=== PATIENT | female | born 1970 | race Two or more races ===

== ENCOUNTER → 2016-09-13 | Outpatient (CLI) | payer OTHER ==
--- NOTE | 2016-09-14 00:10 | ECWPNPC ---
PATIENT NAME: ADE PENNINGTON : 1970 GENDER: FEMALE VISIT DATE: 09/13/2016 DISCHARGE DATE: 09/13/16 1625 VISIT LOCKED DATE TIME: PHYSICIAN: LAURA SMITH RESOURCE: LAURA SMITH REASON FOR APPOINTMENT 1. NECK PAIN HISTORY OF PRESENT ILLNESS NEW PATIENT CONSULT: WHEN DID YOUR PAIN FIRST START? . BRIEFLY DESCRIBE HOW YOUR PAIN STARTED? . HOW DOES YOUR PAIN CHANGE WITH TIME? . DOES YOUR PAIN AWAKEN YOU FROM SLEEP? . HOW MANY HOURS OF SLEEP DO YOU NORMALLY GET? . ANY DIAGNOSTIC TESTING? . FACILITY WHERE TESTS WERE DONE? ____. PAIN TREATMENT TREATMENT YES CANCER HAVE YOU EVER HAD ANY TYPE OF CANCER?NO NO. PAIN SCREENING: PATIENT HAS A COMPLAINT OF ACUTE OR CHRONIC PAIN YES FALL RISK SCREENING: SCREENING :NO FALLS IN THE PAST YEAR OLSEN INVENTORY: QUESTIONNAIRE ASSESSEDYES SCORE VALUE CALCULATED YES SCORE: 3/63 DENIES SUICIDAL OR HOMICIDAL IDEATION TODAY'S VISIT: NOTES: REFERRED BY HALLIE TRAN/[facility] IN THE OFFICE OF DR ENGLAND HAD PREVIOUSLY BEEN A PATIENT OF DR. SHAMIKA MÁRQUEZ, WHO HAD DONE HER PREVIOUS NECK SURGERY.. HAS BEEN EXPERIENCING NECK AND LEFT ARM PAIN FOR SEVERAL YEARS. AFTER MORE CONSERVATIVE TREATMENT DID UNDERGO A C4-5-6 HERE CERVICAL DISCECTOMY AND FUSION IN 2012. REPORTS THAT POSTOPERATIVELY SHE HAD SIGNIFICANT RELIEF OF HER PAIN BUT HAS BEEN DEVELOPING INCREASING PAIN ON RIGHT WITH RADIATION OF PAIN TO RIGHT ARM TO THE HAND. IS ALSO HAVING BURNING PAIN ON LEFT SIDE OF NECK TO THE SHOULDER. IS HAVING LIMITED ROTATION OF NECK. IS HAVING DIFF WITH SLEEP THIS AWAKENS WITH A THROBBING NUMBNESS. CAN DROP ITEMS WITH RIGHT. THIS IS THROBBING ONLY ON THE RIGHT. HAS PERSISTANT NUMBNESS IN ALL FINGERS RIGHT HAND. IS RIGHTHANDED AND CAN HAVE DIFFICULTY WITH WRITING. HAS EXPERIENCED NOTHING WHICH SEEMS TO SIGNIFICANTLY RELIEVE THE PAIN . PT WAS DONE IMMEDIATELY AFTER SURGERY, CONTINUES WITH HOME EXERCISES. HAS TENS UNIT WHICH CAN HELP WITH BURNING. HAS NOT RECENTLY SEEN A CHIROPRACTOR, , NO INJECTIONS IN NECK SINCE SURGERY. . CURRENT MEDICATIONS TAKING SINGULAIR 10 MG TABLET 1 TABLET IN THE EVENING ORALLY ONCE A DAY TAKING GABAPENTIN 100 MG CAPSULE ORALLY BEDTIME TAKING CLARITIN 10 MG TABLET 1 TABLET ORALLY ONCE A DAY TAKING SUDAFED 30 MG TABLET 1 TABLET NEEDED ORALLY EVERY 6 HRS PRN MEDICATION LIST REVIEWED AND RECONCILED WITH THE PATIENT PAST MEDICAL HISTORY CHRONIC SINITUS X DEPRESSION ALLERGIES ENVIRONMENTAL SURGICAL HISTORY L-5 SPINAL FUSION 1991 C6 2012 APPENDECTOMY 1986 FAMILY HISTORY FATHER: ALIVE MOTHER: ALIVE SIBLINGS: ALIVE SON(S): ALIVE DAUGHTER(S): ALIVE SOCIAL HISTORY GENERAL: TOBACCO USE ARE YOU A:NONSMOKER ALCOHOL SCREENING POINTS2 INTERPRETATIONNEGATIVE RECREATIONAL DRUG USE DRUG USE?NO CAFFEINE CAFFEINE USE?YES HOW OFTEN AND HOW MUCH? 1 CUP A DAY OCCUPATION: [employer] WORK[employer]. DIET: REGULAR. EXERCISE: DAILY. MARITAL STATUS: . DENOMINATIONAL: NO PREFERENCE. LANGUAGE: PASHTO. EDUCATION: COLLEGE. PSYCHOLOGICAL HX TREATMENTNO PAIN CLINIC PFS, CLERGY, PUBLIC HEALTH REFERRALS CLERGY REFERRAL NEEDED?NO WAS THE PROVIDER NOTIFIED OF ANY PERTINENT INFO?NO PFS REFERRAL NEEDED?NO PUBLIC HEALTH REFERRAL NEEDED?NO PATIENT: ____. ADVANCED DIRECTIVES HEALTH CARE PROXY?NO POWER OF BLIND HOOKER?NO HOSPITALIZATION/MAJOR DIAGNOSTIC PROCEDURE NO HOSPITALIZATION HISTORY. REVIEW OF SYSTEMS CONSTITUTIONAL: ANY CHANGE IN YOUR MEDICAL CONDITION? NO . CHILLS NO . FEVER NO . INFECTION: DO YOU HAVE NEW INFECTIONS? NO . DO YOU HAVE HISTORY OF MRSA? NO . MUSCULOSKELETAL: ANY NEW PATTERNS OF PAIN OR NUMBNESS? NO . SYTEMIC LUPUS NO . GASTROENTEROLOGY: ANY NEW CHANGE IN BOWEL CONTROL? NO . BARRETTS ESOPHAGUS NO . CIRRHOSIS NO . HEPATITIS NO . LIVER FAILURE NO . ACID REFLUX NO . UNEXPLAINED WEIGHT LOSS NO . GENITOURINARY: ANY NEW CHANGE IN BLADDER CONTROL? NO . IS THERE A CHANCE YOU COULD BE ? NO . HEMATOLOGY/LYMPH: DO YOU TAKE ANY BLOOD THINNERS? (FOR EXAMPLE- COUMADIN, PLAVIX, AGGRENOX, PLATEL, PRADAXA, OR XARELTO) NO . WHEN WAS YOUR LAST DOSE? DATE: TIME: . LOW PLATELET COUNT NO . SICKLE CELL DISEASE NO . VON WILLIEBRANDS NO . FACTOR V LEIDEN NO . THALLASEMIA NO . ANEMIA NO . EASY BRUISING NO . NEUROLOGY: HAVE YOU FALLEN IN THE PAST 6 MONTHS? NO . ANY NEW EXTREMITY NUMBNESS OR WEAKNESS? NO . HEAD INJURY NO . DEMENTIA NO . CEREBRAL PALSY NO . MULTIPLE SCLEROSIS NO . DIZZINESS NO . HEADACHE NO . STROKES NO . VERTIGO NO . CARDIOLOGY: DO YOU HAVE A PACEMAKER OR DEFIBRILLATOR? NO . ANGINA NO . HEART ATTACK NO . HEART SURGERY NO . CONGESTIVE HEART FAILURE/FLUID OVERLOAD NO . CHEST PAIN NO . HIGH BLOOD PRESSURE NO . IRREGULAR HEART BEAT NO . RESPIRATORY: HAVE YOU BEEN SICK IN THE PAST WEEK? NO . FEVER NO . FLU LIKE SYMPTOMS? NO . CPAP NO . BYPAP NO . ASTHMA NO . EMPHYSEMA NO . CHRONIC LUNG DISEASES NO . SHORTNESS OF BREATH ON EXERTION NO . DO YOU USE ANY TYPE OF TOBACCO (SMOKE, SMOKELESS, CHEW)? NO . COUGH NO . SNORING NO . INTEGUMENTARY: DO YOU HAVE ANY RASHES OR OPEN SORES? NO . ALLERGIC/IMMUNO: ARE YOU ALLERGIC TO SHELLFISH OR IV DYE? NO . ANY NEW ALLERGIES? NO . PSYCHIATRIC: DO YOU HAVE THOUGHTS OF HURTING YOURSELF OR SOMEONE ELSE? NO . ARE YOU ABUSED, NEGLECTED, OR IN AN UNSAFE ENVIRONMENT? NO . ENDOCRINOLOGY: ARE YOU DIABETIC? NO . THYROID DISORDER NO . OTHER: DO YOU NEED ANY PRESCRIPTIONS? NO . IF YES, PLEASE LIST: ____ . ANY NEW PROBLEMS WITH YOUR MEDICATIONS? NO . WHEN DID YOU LAST EAT? ____ . WHEN DID YOU LAST DRINK? ____ . WHAT DID YOU LAST DRINK? ____ . NAME OF PERSON DRIVING YOU HOME? ____ . DO YOU HAVE ANY OTHER QUESTIONS OR CONCERNS NO . REVIEWED BY: PROVIDER: [employer]A [employer] . VITAL SIGNS WT 134 LBS, HT 60", BMI 26.17 INDEX, BP 139/86 MM HG, HR 87 /MIN, RR 16 /MIN, TEMP 98.3 F, OXYGEN SAT % 97, NA INITIALS TL 1527, REVIEWED BY: KG. EXAMINATION GENERAL EXAMINATION: PSYCHALERT , ORIENTED X 3 , APPROPRIATE MOOD AND AFFECT . HEENT:NORMOCEPHALIC, NO LYMPHADENOPATHY NO THYROMEGALY. LUNGS:CLEAR TO AUSCULTATION BILATERALLY, NO WHEEZES RALES OR RHONCHI. HEART:S1-S2 NO MURMURS CLICKS OR RUBS . MUSCULOSKELETAL:NO SPECIFIC OCCIPITAL NOTCH TENDERNESS. MILD TENDERNESS WITH PALPATION OVER THE CERVICAL SPINOUS PROCESSES. TRIGGER POINTS AND TIGHT FIBROUS BANDS ARE IDENTIFIED OVER THE CERVICAL PARASPINOUS MUSCLES AND ACROSS THE TRAPEZIUS. MILD RESTRICTION OF RANGE OF MOTION IS NOTED WITH NECK FLEXION AND EXTENSION AND ROTATION. GOOD SHOULDER SHRUG. MUSCLE STRENGTH 5 OVER 5 DISTALLY AND PROXIMALLY IN THE LEFT UPPER EXTREMITY; 5 MINUS OVER 5 DISTALLY AND PROXIMALLY IN THE RIGHT UPPER EXTREMITY. POSTURE IS UPRIGHT GAIT IS NONANTALGIC ABLE TO RISE TO A FULL UPRIGHT POSITION WITHOUT DIFFICULTY ABLE TO RISE TO HEEL AND TOE WITHOUT DIFFICULTY. NEUROLOGIC EXAM:DTR'S 1+ BILATERAL UPPER EXTREMITIES. TRACE TO ABSENT IN THE BILATERAL LOWER EXTREMITIES. DECREASES SENSATION TO LIGHT TOUCH OVER THUMB RIGHT SIDE ONLY.. DIAGNOSTIC TESTS REVIEWEDMRI OF CERVICAL SPINE COMPLETED ON 06/04/16: THIS DID DEMONSTRATE PRIOR POST ANTERIOR CERVICAL DISCECTOMY AND FUSION AT C5-6 WITH SOME DISC BULGES NOTED AT C4-5 AND C6-7 NOT CAUSING ANY SIGNIFICANT SPINAL STENOSIS OR CORD COMPRESSION. AT C4-5 THERE IS A SMALL POSTERIOR OSTEOPHYTIC RIDGING WITH ASSOCIATED DISC BULGE THINNING VENTRAL SUBARACHNOID SPACE BUT NOT CAUSING CENTRAL CANAL STENOSIS. AT C6-7 THERE IS A SMALL DISC BULGE WITHOUT SPINAL STENOSIS. THERE IS FORAMINAL ENCROACHMENT ON THE RIGHT AT C6-7 THE LEFT FORAMEN WAS FELT TO BE ADEQUATE. AT C7-T1 AND T1 TO THERE IS NO DISC BULGE OR HERNIATION NO SPINAL OR FORAMINAL STENOSIS. THE CORD SHOWS NO INTRINSIC SIGNAL ABNORMALITY SHRINKS ATROPHY OR MASS. THE CRANIOCERVICAL JUNCTION SHOWS AMPLE SUBARACHNOID SPACE WITH CEREBELLAR TONSILLAR ECTOPY.EMG NERVE CONDUCTION STUDY WAS COMPLETED AT [facility] ON 03/06/2015. DID DEMONSTRATE A RIGHT SUBACUTE C5, C6, C7 PROCESS.. ASSESSMENTS CERVICAL DISC DISORDER AT C6-C7 LEVEL WITH RADICULOPATHY - M50.123 (PRIMARY) CERVICAL POST-LAMINECTOMY SYNDROME - M96.1 TREATMENT CERVICAL DISC DISORDER AT C6-C7 LEVEL WITH RADICULOPATHY CERVICAL EPIDURAL LAURA AGUSTIN 09/13/2016 4:11:34 PM > STRAIGHT INTRA LAMINAL VS, CATHETER TO C6 C7 RIGHT SIDE NOTES: DR. WONG TO COME TO THE ROOM AND DISCUSS THE CASE WITH THE PATIENT AND MYSELF. HE DID REVIEW THE REFERRAL WHICH SPECIFICALLY ASKS FOR A C6-7 TRANSFORAMINAL EPIDURAL ON THE RIGHT. DR. WONG DID EXPLAIN TO THE PATIENT THAT THIS IS NOT A PARTICULAR TREATMENT THAT WE DO HERE AT OUR CLINIC DUE TO THE RISKS. HE DID OFFER TO DO AN INTRALAMINAR EPIDURAL FOR THERAPEUTIC PURPOSES OR TO DO IT INTERLAMINAL EPIDURAL PASSAGE OF A CATHETER TO THE TO THE C6-7 NEURAL FORAMINAL SPACE FOR DIAGNOSTIC PURPOSES. WE WILL CONTACT HALLIE TRAN FOR DR. ENGLAND TO SEE IF THIS WOULD BE ACCEPTABLE. THIS WAS EXPLAINED TO THE PATIENT AND SHE WAS IN AGREEMENT. CLINICAL NOTES: OPTION FOR EPIDURAL INJECTIONS WERE DISCUSSED WITH THE PATIENT. FDA CONCERNS AND WARNING WERE REVIEWED INCLUDING THE RISK OF BLEEDING, RISK OF INFECTION, RISK OF INCREASED PAIN OR NEURALGIA, AND RISK OF PARALYSIS. PATIENT'S QUESTIONS WERE ANSWERED AND SHE WISHES TO MOVE FORWARD WITH EPIDURAL INJECTION. PROCEDURE CODES FA211 ESTABILISHED PATIENT [facility] CHARGE FOLLOW UP AFTER INJECTION (REASON: NEED TO DISCUSS WITH Marlen TRAN AT [facility]. NEED DULCE MARIA FOR EMG DONE AT DR RUSSO IN [place]) ELECTRONICALLY SIGNED BY BOB HYATT ON 09/13/2016 AT 05:30 PM EST DISCLAIMER : THIS IS A VISIT SUMMARY EXTRACTED FROM THE [employer] CHART. IT IS NOT A COPY OF THE [email or web address] PROGRESS NOTE. WILLAM
== END ==
LOC: M PAIN 15:20
PROVIDERS: ATTEND Nurse Practitioner Family
DX: G89.29 Other chronic pain (principal); M50.123 Cervical disc disorder at C6-C7 level with radiculopathy; M96.1 Postlaminectomy syndrome, not elsewhere classified; M79.602 Pain in left arm; J32.9 Chronic sinusitis, unspecified; F32.9 Major depressive disorder, single episode, unspecified; J30.89 Other allergic rhinitis; Z79.899 Other long term (current) drug therapy

== ENCOUNTER → 2017-03-30 | Outpatient (CLI) | payer OTHER ==
--- NOTE | 2017-03-30 09:23 | REP ---
CT CERVICAL SPINE WITHOUT CONTRAST: HISTORY: Neck pain. COMPARISON: MR 10/21/2014. The small disc protrusions noted at the C2-3 through C4-5 levels in the previous examination are not seen. The patient is status post C5-6 anterior spinal fusion. A fixation plate and bone graft material are present. The spinal canal is patent at this level. Bilateral uncinate process hypertrophy is present. This produces minimal narrowing of the C5 neural foramina. A disc bulge with associated osteophyte formation is present at the C6-7 level. There is minimal narrowing of the spinal canal. Bilateral uncinate process hypertrophy is present. This produces mild and minimal narrowing of the right and left C6 neural foramina respectively. There is no other disc bulge or herniation. The remaining neural foramina are patent. The C4-5 and C6-7 intervertebral discs are decreased in height consistent with disc degeneration. There is no subluxation. IMPRESSION: 1. The patient is status post C5-6 anterior spinal fusion. There is anatomic alignment of the cervical spine. 2. There is cervical spondylosis at the C5-6 and C6-7 levels. Signed by Mayco Franks MD 03/30/2017 09:31 A
== END ==
LOC: M RAD 07:48
PROVIDERS: ATTEND Orthopaedic Surgery
DX: M43.02 Spondylolysis, cervical region (principal); M43.22 Fusion of spine, cervical region

== ENCOUNTER → 2017-05-06 | Outpatient (REF) | payer OTHER | LOC: M LAB REF 15:53 | PROVIDERS: ATTEND Family Medicine | DX: Z01.419 Encounter for gynecological examination (general) (routine) without abnormal findings (principal); Z11.51 Encounter for screening for human papillomavirus (HPV) | CPT/HCPCS: 87070; G0123 ==

== ENCOUNTER → 2017-09-12 | Outpatient (CLI) | payer OTHER | LOC: M WHC 13:31 | DX: Z12.31 Encounter for screening mammogram for malignant neoplasm of breast (principal) | CPT/HCPCS: 77067 ==

== ENCOUNTER → 2019-01-20 | Outpatient (REF) | payer OTHER | LOC: M LAB REF 17:09 | PROVIDERS: ATTEND Physician Assistant Medical | DX: J02.9 Acute pharyngitis, unspecified (principal) ==

== ENCOUNTER → 2019-03-20 | Outpatient (REF) | payer OTHER ==
[~2019-03-20] MED LIST: CLAR10CA3 PO; DICL75TA PO; GABA-843 PO; HAIR1CHW2 PO; MAGN400C2 PO; MONT10TA2 PO; MULTCAP PO; OYST1TAB PO; PSEU30TA88 PO
[2019-03-20 12:31] LABS: BASO % 0.5 % (0.0-1.0); EOS # 0.1 10^3/uL (0.0-0.50); EOS % 1.6 % (0.0-3.0); HEMATOCRIT 36.7 % (36.0-47.0); HEMOGLOBIN 12.1 g/dl (12.0-15.5); LYMPH # 1.6 10^3/uL (1.5-4.5); LYMPH % 29.4 % (24.0-44.0); MONO # 0.4 10^3/uL (0.0-0.8); MONO % 7.5 % (0.0-5.0); NEUTROPHILS # 3.3 10^3/uL (1.8-7.7); NEUTROPHILS % 60.3 % (36.0-66.0); PLATELET COUNT, AUTOMATED 145 10^3/uL (150-450); RED BLOOD COUNT 3.67 10^6/uL (4.00-5.40); WHITE BLOOD COUNT 5.5 10^3/uL (4.0-10.0)
[2019-03-20 12:46] LABS: ALBUMIN 3.9 GM/DL (3.2-5.2); ALT/SGPT 29 U/L (12-78); BLOOD UREA NITROGEN 12 MG/DL (7-18); CALCIUM LEVEL 8.8 MG/DL (8.5-10.1); CARBON DIOXIDE LEVEL 26 MEQ/L (21-32); CHLORIDE LEVEL 109 MEQ/L (98-107); CHOLESTEROL LEVEL 183 MG/DL (<200); CHOLESTEROL RISK RATIO 2.614 (<5); CREATININE FOR GFR 0.63 MG/DL (0.55-1.30); GLOMERULAR FILTRATION RATE > 60.0 (>51); GLUCOSE, FASTING 86 MG/DL (70-100); HDL CHOLESTEROL 70 MG/DL (>40); LDL CHOLESTEROL 90 MG/DL (<100); NON-HDL-C 113 MG/DL; SODIUM LEVEL 143 MEQ/L (136-145); TOTAL PROTEIN 6.7 GM/DL (6.4-8.2); TRIGLYCERIDES LEVEL 114 MG/DL (<150)
== END ==
LOC: M LABDRAW1 08:22
PROVIDERS: ATTEND Family Medicine
DX: Z00.00 Encounter for general adult medical examination without abnormal findings (principal)

== ENCOUNTER 2019-03-21 06:42 | Day surgery (SDC) | payer OTHER ==
[~2019-03-21] VITALS: Ht 154.9 cm; Wt 55.3 kg
[2019-03-21] MEDS ORDERED: NS 1,000 ML IV ONE (07:00)
[2019-03-21] MEDS ORDERED: PROPOFOL 200 MG/20 ML VIAL As Ordered ONE (07:12)
[2019-03-21] MEDS ORDERED: LIDOCAINE 2% INJ 100 MG/5 ML SDV (FOR ANES.) As Ordered ONE (07:14)
--- NOTE | 2019-03-21 08:04 | ROOR ---
Patient Name: Debra Myers Procedure Date: 03/21/2019 7:33 AM Date of : 1970 Age: 48 Room: [facility] Gender: Female Note Status: Finalized Procedure: Colonoscopy Indications: Screening for colorectal malignant neoplasm Providers: Oracio Gonzalez MD Referring MD: Katty Ferrlel MD Requesting Provider: Medicines: Monitored Anesthesia Care Complications: No immediate complications. Procedure: Pre-Anesthesia Assessment: - Prior to the procedure, a History and Physical was performed, and patient medications and allergies were reviewed. The patient is competent. The risks and benefits of the procedure and the sedation options and risks were discussed with the patient. All questions were answered and informed consent was obtained. Patient identification and proposed procedure were verified by the physician, the nurse and the anesthesiologist in the endoscopy suite. Mental Status Examination: alert and oriented. Airway Examination: normal oropharyngeal airway and neck mobility. Respiratory Examination: clear to auscultation. CV Examination: normal. Prophylactic Antibiotics: The patient does not require prophylactic antibiotics. Prior Anticoagulants: The patient has taken no previous anticoagulant or antiplatelet agents. ASA Grade Assessment: II - A patient with mild systemic disease. After reviewing the risks and benefits, the patient was deemed in satisfactory condition to undergo the procedure. The anesthesia plan was to use monitored anesthesia care (MAC). Immediately prior to administration of medications, the patient was re-assessed for adequacy to receive sedatives. The heart rate, respiratory rate, oxygen saturations, blood pressure, adequacy of pulmonary ventilation, and response to care were monitored throughout the procedure. The physical status of the patient was re-assessed after the procedure. The Colonoscope was introduced through the anus and advanced to the cecum, identified by appendiceal orifice and ileocecal valve. The colonoscopy was performed without difficulty. The patient tolerated the procedure well. The quality of the bowel preparation was excellent. Findings: The perianal and digital rectal examinations were normal. Two flat polyps were found in the sigmoid colon and transverse colon. The polyps were diminutive in size. These polyps were removed with a cold snare. Resection and retrieval were complete. Estimated blood loss was minimal. The retroflexed view of the distal rectum and anal verge was normal and showed no anal or rectal abnormalities. Impression: - Two diminutive polyps in the sigmoid colon and in the transverse colon, removed with a cold snare. Resected and retrieved. - The distal rectum and anal verge are normal on retroflexion view. Recommendation: - Discharge patient to home (ambulatory). - Advance diet as tolerated. - Repeat colonoscopy in 5 years for surveillance. Oracio Gonzalez MD Oracio Gonzalez MD 03/21/2019 8:03:39 AM Electronically signed by Oracio Gonzalez MD Number of Addenda: 0 Note Initiated On: 03/21/2019 7:33 AM Estimated Blood Loss: Estimated blood loss was minimal.
[2019-03-21 08:23] VITALS: BP 113/74
== END 2019-03-21 08:29 | disposition home or self-care (01) ==
LOC: M OPP 06:42
PROVIDERS: ATTEND Surgery
DX: Z12.11 Encounter for screening for malignant neoplasm of colon (principal); K63.5 Polyp of colon; Z79.899 Other long term (current) drug therapy; Z88.5 Allergy status to narcotic agent; Z87.891 Personal history of nicotine dependence

== ENCOUNTER → 2019-04-12 | Outpatient (CLI) | payer OTHER ==
--- NOTE | 2019-04-12 13:46 | REPMRS ---
Patient History The patient states she has not had a clinical breast exam in over a year. Family history of breast cancer at age 50 or over in maternal grandmother. Taking hormonal contraceptives for 22 years. 3D TOMOSYNTHESIS WAS PERFORMED. [facility] for breast cancer is 11.4%. Digital Woman Screen Mammo: April 12, 2019 - Exam #: [id number] Bilateral CC and MLO view(s) were taken. Technologist: Alisa Powers, Technologist Prior study comparison: September 12, 2017, digital woman screen mammo performed at [facility]. July 13, 2016, [facility]. FINDINGS: The breast tissue is heterogeneously dense. This may lower the sensitivity of mammography. There has been no change in the appearance of the mammogram from the prior studies. There is a moderate amount of residual fibroglandular tissue which is fairly symmetric. There is no interval development of dominant mass, areas of architectural distortion, or clustered microcalcification typical of malignancy. Assessment: BI-RADS/ACR category 1 mammogram. Negative Mammogram. Recommendation Routine screening mammogram in 1 year (for women over age 40). This mammogram was interpreted with the aid of an FDA-approved computer-aided dectection system. Electronically Signed By: Alejo Hoffman MD 04/12/19 [id number]
== END ==
LOC: M WHC 12:51
PROVIDERS: ATTEND Family Medicine
DX: Z12.31 Encounter for screening mammogram for malignant neoplasm of breast (principal); Z79.3 Long term (current) use of hormonal contraceptives

== ENCOUNTER → 2020-05-14 | Outpatient (CLI) | payer OTHER ==
[~2020-05-14] MED LIST changes: -MONT10TA2 PO; +MONT10TA4 PO
== END ==
LOC: M LABSMTC 11:27
PROVIDERS: ATTEND Family Medicine
DX: Z20.828 Contact with and (suspected) exposure to other viral communicable diseases (principal)
CPT/HCPCS: C9803; U0003

== ENCOUNTER → 2020-06-05 | Outpatient (CLI) | payer OTHER ==
--- NOTE | 2020-06-05 15:07 | REPMRS ---
Patient History The patient states she has not had a clinical breast exam in over a year. Family history of breast cancer at age 50 or over in maternal grandmother. Taking hormonal contraceptives for 23 years. 3D TOMOSYNTHESIS WAS PERFORMED. [facility] lifetime risk for breast cancer is 11.2%. [facility] breast density b. Digital Woman Screen Mammo: June 05, 2020 - Exam #: [id number] Bilateral CC and MLO view(s) were taken. Technologist: Alisa Powers, Technologist Prior study comparison: April 12, 2019, bilateral digital woman screen mammo performed at [facility]. September 12, 2017, digital woman screen mammo performed at [facility]. FINDINGS: There are scattered fibroglandular densities. There has been no change in the appearance of the mammogram from the prior studies. There is a mild amount of residual fibroglandular tissue which is fairly symmetric. There is no interval development of dominant mass, architectural distortion, or clustered microcalcification suggestive of malignancy. Assessment: BI-RADS/ACR category 1 mammogram. Negative Mammogram. Recommendation Routine screening mammogram in 1 year (for women over age 40). This mammogram was interpreted with the aid of an FDA-approved computer-aided dectection system. Electronically Signed By: Alejo Hoffman MD 06/05/20 [id number]
== END ==
LOC: M WHC 14:00
PROVIDERS: ATTEND Family Medicine
DX: Z12.31 Encounter for screening mammogram for malignant neoplasm of breast (principal)

== ENCOUNTER → 2021-03-26 | Outpatient (CLI) | payer OTHER ==
[~2021-03-26] MED LIST changes: +GABA-282 PO; -GABA-843 PO; +MONT10TA10 PO; -MONT10TA4 PO
[2021-03-26 12:17] LABS: BLOOD UREA NITROGEN 12 MG/DL (7-18); CREATININE FOR GFR 0.57 MG/DL (0.55-1.30); GLOMERULAR FILTRATION RATE > 60.0 (>51)
== END ==
LOC: M PLAIMG 08:54
PROVIDERS: ATTEND Orthopaedic Surgery
DX: M19.049 Primary osteoarthritis, unspecified hand (principal)

== ENCOUNTER → 2021-08-25 | Outpatient (CLI) | payer OTHER ==
[~2021-08-25] MED LIST changes: -MONT10TA10 PO; +MONT10TA97 PO
== END ==
LOC: M WHC 14:19
PROVIDERS: ATTEND Family Medicine
DX: Z12.31 Encounter for screening mammogram for malignant neoplasm of breast (principal)

== ENCOUNTER → 2022-06-15 | Outpatient (CLI) | payer OTHER ==
[2022-06-15 14:23] LABS: BASO # 0.1 10^3/uL (0.0-0.2); BASO % 0.8 % (0.0-1.0); EOS # 0.1 10^3/uL (0.0-0.5); EOS % 1.2 % (0.0-3.0); HEMATOCRIT 39.5 % (36.0-47.0); LYMPH # 1.9 10^3/uL (1.5-5.0); LYMPH % 30.3 % (24.0-44.0); MEAN CORPUSCULAR HEMOGLOBIN 32.9 pg (27.0-33.0); MEAN CORPUSCULAR HGB CONC 32.9 g/dl (32.0-36.5); MONO # 0.6 10^3/uL (0.0-0.8); MONO % 9.7 % (2.0-8.0); NEUTROPHILS # 3.6 10^3/uL (1.5-8.5); NEUTROPHILS % 56.1 % (36.0-66.0); PLATELET COUNT, AUTOMATED 189 10^3/uL (150-450); RED BLOOD COUNT 3.95 10^6/uL (4.00-5.40); WHITE BLOOD COUNT 6.4 10^3/uL (4.0-10.0)
[2022-06-15 14:41] LABS: APPEARANCE, URINE MANUAL CLEAR (CLEAR); BILIRUBIN, URINE MANUAL NEGATIVE (NEGATIVE); BLOOD URINE MANUAL NEGATIVE (NEGATIVE); COLOR, URINE MANUAL YELLOW (YELLOW); GLUCOSE, URINE (UA) MANUAL NEGATIVE (NEGATIVE); KETONE, URINE MANUAL NEGATIVE (NEGATIVE); LEUKOCYTE ESTERASE, URINE MAN NEGATIVE (NEGATIVE); NITRITE, URINE MANUAL NEGATIVE (NEGATIVE); PROTEIN, URINE MANUAL NEGATIVE (NEGATIVE); UROBILINOGEN, URINE MANUAL NORMAL (NORMAL)
[2022-06-15 16:04] LABS: ALBUMIN 4.1 GM/DL (3.2-5.2); ALT/SGPT 29 U/L (12-78); BILIRUBIN,TOTAL 0.8 MG/DL (0.2-1.0); BLOOD UREA NITROGEN 16 MG/DL (7-18); CALCIUM LEVEL 9.5 MG/DL (8.5-10.1); CARBON DIOXIDE LEVEL 27 MEQ/L (21-32); CHLORIDE LEVEL 106 MEQ/L (98-107); CHOLESTEROL LEVEL 224 MG/DL (<200); CHOLESTEROL RISK RATIO 3.612 (<5); CREATININE FOR GFR 0.58 MG/DL (0.55-1.30); GLOMERULAR FILTRATION RATE > 60.0 (>51); GLUCOSE, FASTING 115 MG/DL (70-100); HDL CHOLESTEROL 62 MG/DL (>40); LDL CHOLESTEROL 136 MG/DL (<100); NON-HDL-C 162 MG/DL; SODIUM LEVEL 137 MEQ/L (136-145); TOTAL PROTEIN 7.5 GM/DL (6.4-8.2); TRIGLYCERIDES LEVEL 132 MG/DL (<150)
[2022-06-15 17:19] LABS: TOTAL 25(OH) VITAMIN D 42.3 NG/ML (30.0-100.0)
== END ==
LOC: M LABDRWAD 08:34
PROVIDERS: ATTEND Family Medicine
DX: Z00.00 Encounter for general adult medical examination without abnormal findings (principal); R39.15 Urgency of urination; R03.0 Elevated blood-pressure reading, without diagnosis of hypertension

== ENCOUNTER → 2022-08-27 | Outpatient (CLI) | payer OTHER | LOC: M WHC 12:11 | PROVIDERS: ATTEND Family Medicine | DX: Z12.31 Encounter for screening mammogram for malignant neoplasm of breast (principal) ==

== ENCOUNTER → 2022-09-10 | Outpatient (REF) | payer OTHER | LOC: M LAB REF 13:42 | PROVIDERS: ATTEND Registered Nurse | DX: Z01.419 Encounter for gynecological examination (general) (routine) without abnormal findings (principal) | CPT/HCPCS: 87624; G0123 ==

== ENCOUNTER → 2023-01-18 | Outpatient (REF) | payer OTHER ==
[2023-01-18 15:10] LABS: BASO % 0.5 % (0.0-1.0); EOS # 0.1 10^3/uL (0.0-0.5); EOS % 1.8 % (0.0-3.0); HEMATOCRIT 40.7 % (36.0-47.0); HEMOGLOBIN 13.5 g/dl (12.0-15.5); LYMPH # 1.9 10^3/uL (1.5-5.0); LYMPH % 32.7 % (24.0-44.0); MEAN CORPUSCULAR HEMOGLOBIN 32.5 pg (27.0-33.0); MEAN CORPUSCULAR HGB CONC 33.2 g/dl (32.0-36.5); MEAN CORPUSCULAR VOLUME 97.8 fl (80.0-96.0); MONO # 0.6 10^3/uL (0.0-0.8); MONO % 9.7 % (2.0-8.0); NEUTROPHILS # 3.1 10^3/uL (1.5-8.5); NEUTROPHILS % 54.8 % (36.0-66.0); PLATELET COUNT, AUTOMATED 159 10^3/uL (150-450); RED BLOOD COUNT 4.16 10^6/uL (4.00-5.40); WHITE BLOOD COUNT 5.7 10^3/uL (4.0-10.0)
[2023-01-18 15:48] LABS: ALBUMIN 4.3 G/DL (3.2-5.2); ALKALINE PHOSPHATASE 69 U/L (46-116); ALT/SGPT 23 U/L (7.0-40); AST/SGOT 16 U/L (<34); BILIRUBIN,TOTAL 1.1 MG/DL (0.3-1.2); BLOOD UREA NITROGEN 16 MG/DL (9-23); CALCIUM LEVEL 9.2 MG/DL (8.5-10.1); CARBON DIOXIDE LEVEL 27 MMOL/L (20-31); CHLORIDE LEVEL 105 MMOL/L (98-107); GLOMERULAR FILTRATION RATE > 60.0 (>51); GLUCOSE, FASTING 114 MG/DL (60-100); SODIUM LEVEL 140 MMOL/L (136-145); TOTAL PROTEIN 7.1 G/DL (5.7-8.2)
== END ==
LOC: M LABDRWAD 12:55
PROVIDERS: ATTEND Registered Nurse
DX: Z01.818 Encounter for other preprocedural examination (principal); R03.0 Elevated blood-pressure reading, without diagnosis of hypertension

== ENCOUNTER → 2023-09-06 | Outpatient (CLI) | payer OTHER | LOC: M WHC 12:19 | PROVIDERS: ATTEND Family Medicine | DX: Z12.31 Encounter for screening mammogram for malignant neoplasm of breast (principal) ==

== ENCOUNTER → 2023-12-20 | Outpatient (REF) | payer OTHER ==
[2023-12-20 13:56] LABS: HEMATOCRIT 41.1 % (36.0-47.0); HEMOGLOBIN 13.9 g/dl (12.0-15.5); MEAN CORPUSCULAR HEMOGLOBIN 33.4 pg (27.0-33.0); MEAN CORPUSCULAR HGB CONC 33.8 g/dl (32.0-36.5); MEAN CORPUSCULAR VOLUME 98.8 fl (80.0-96.0); PLATELET COUNT, AUTOMATED 164 10^3/uL (150-450); RED BLOOD COUNT 4.16 10^6/uL (4.00-5.40); WHITE BLOOD COUNT 5.1 10^3/uL (4.0-10.0)
[2023-12-20 13:57] LABS: BLOOD UREA NITROGEN 13 MG/DL (9-23); CALCIUM LEVEL 9.7 MG/DL (8.5-10.1); CARBON DIOXIDE LEVEL 26 MMOL/L (20-31); CHLORIDE LEVEL 101 MMOL/L (98-107); CREATININE FOR GFR 0.58 MG/DL (0.55-1.30); GLOMERULAR FILTRATION RATE > 60.0 (>51); GLUCOSE, FASTING 98 MG/DL (60-100); POTASSIUM SERUM 4.2 MMOL/L (3.5-5.1); SODIUM LEVEL 137 MMOL/L (136-145)
== END ==
LOC: M LABDRWAD 12:45
PROVIDERS: ATTEND Orthopaedic Surgery
DX: Z79.1 Long term (current) use of non-steroidal anti-inflammatories (NSAID) (principal)

== ENCOUNTER → 2024-06-19 | Outpatient (REF) | payer OTHER ==
[~2024-06-19] MED LIST changes: +BUSP15TA47 PO; +GABA-1172 PO; -GABA-282 PO; +HAIR1CHW PO; +LOSA50TA28 PO; +MELO15TA28 PO; +MULTTAB61 PO; +TOLT4CAP3 PO; +TRAZ1TAB14 PO
[2024-06-19 14:38] LABS: BASO % 0.5 % (0.0-1.0); EOS % 0.7 % (0.0-3.0); HEMOGLOBIN 13.7 g/dl (12.0-15.5); LYMPH # 1.7 10^3/uL (1.5-5.0); LYMPH % 30.2 % (24.0-44.0); MEAN CORPUSCULAR HEMOGLOBIN 32.9 pg (27.0-33.0); MEAN CORPUSCULAR HGB CONC 33.4 g/dl (32.0-36.5); MEAN CORPUSCULAR VOLUME 98.3 fl (80.0-96.0); MONO # 0.5 10^3/uL (0.0-0.8); MONO % 9.5 % (2.0-8.0); NEUTROPHILS # 3.3 10^3/uL (1.5-8.5); NEUTROPHILS % 58.2 % (36.0-66.0); PLATELET COUNT, AUTOMATED 152 10^3/uL (150-450); RED BLOOD COUNT 4.17 10^6/uL (4.00-5.40); WHITE BLOOD COUNT 5.6 10^3/uL (4.0-10.0)
[2024-06-19 14:42] LABS: ALBUMIN 4.2 G/DL (3.2-5.2); ALKALINE PHOSPHATASE 67 U/L (35-104); ALT/SGPT 18 U/L (7.0-40); AST/SGOT 13 U/L (<34); BLOOD UREA NITROGEN 12 MG/DL (9-23); CALCIUM LEVEL 9.7 MG/DL (8.5-10.1); CARBON DIOXIDE LEVEL 28 MMOL/L (20-31); CHLORIDE LEVEL 104 MMOL/L (98-107); CHOLESTEROL LEVEL 218 MG/DL (<200); CHOLESTEROL RISK RATIO 2.83 (<5); CREATININE FOR GFR 0.51 MG/DL (0.55-1.30); GLOMERULAR FILTRATION RATE > 60.0 (>51); GLUCOSE, FASTING 101 MG/DL (60-100); HDL CHOLESTEROL 76.9 MG/DL (>40); LDL CHOLESTEROL 124.7 MG/DL (<100); NON-HDL-C 141.1 MG/DL; SODIUM LEVEL 137 MMOL/L (136-145); TOTAL PROTEIN 7.5 G/DL (5.7-8.2); TRIGLYCERIDES LEVEL 82 MG/DL (<150)
[2024-06-19 14:43] LABS: THYROID PEROXIDASE ANTIBODY 61 U/ML (<60.0); THYROID STIMULATING HORMONE 1.479 uIU/ML (0.55-4.78)
[2024-06-19 14:44] LABS: FREE T4 1.23 NG/DL (0.89-1.76)
== END ==
LOC: M LABDRWAD 13:44
PROVIDERS: ATTEND Registered Nurse
DX: L65.9 Nonscarring hair loss, unspecified (principal); I10 Essential (primary) hypertension

== ENCOUNTER 2024-07-18 10:55 | Day surgery (SDC) | payer OTHER ==
[~2024-07-18] VITALS: Ht 152.4 cm; Wt 53.2 kg
[2024-07-18] MEDS ORDERED: LIDOCAINE 2% 100MG/5ML SDV (FOR ANES.) As Ordered ONE (12:28)
[2024-07-18] MEDS ORDERED: propofoL 200 MG/20 ML VIAL As Ordered ONE (12:28)
[2024-07-18 13:20] VITALS: BP 124/74; O2SAT 97
== END 2024-07-18 13:40 | disposition home or self-care (01) ==
LOC: M OPP 10:55
PROVIDERS: ATTEND Surgery
DX: D12.7 Benign neoplasm of rectosigmoid junction (principal); Z86.0109 Personal history of other colon polyps; Z88.5 Allergy status to narcotic agent; I10 Essential (primary) hypertension

== ENCOUNTER → 2024-10-11 | Outpatient (CLI) | payer OTHER | LOC: M WHC 13:57 | PROVIDERS: ATTEND Registered Nurse | DX: Z12.31 Encounter for screening mammogram for malignant neoplasm of breast (principal) ==

== ENCOUNTER → 2024-11-02 | Outpatient (CLI) | payer OTHER ==
[2024-11-02 14:25] LABS: URIC ACID 3.5 MG/DL (3.1-7.8)
[2024-11-02 14:28] LABS: C REACTIVE PROTEIN QUANTITATIV < 0.50 MG/DL (<1.0); FREE T4 1.33 NG/DL (0.89-1.76); RHEUMATOID FACTOR QUANT 3.7 IU/ML (<14); THYROID STIMULATING HORMONE 0.768 uIU/ML (0.55-4.78)
[2024-11-02 14:29] LABS: THYROID PEROXIDASE ANTIBODY 58 U/ML (<60.0)
[2024-11-05 17:42] LABS: LYME TOTAL ANTIBODY CIA <= 0.90 Index (<=0.90)
[2024-11-06 14:57] LABS: ANA PATTERN Nuclear, Speckled (NEGATIVE); ANA SCREEN, IFA POSITIVE (NEGATIVE)
== END ==
LOC: M LABDRWAD 10:33
PROVIDERS: ATTEND Registered Nurse
DX: M25.50 Pain in unspecified joint (principal)

== ENCOUNTER → 2024-12-26 | Outpatient (REF) | payer OTHER | LOC: M SFHCADAM 14:43 | PROVIDERS: ATTEND Physician Assistant | DX: Z53.9 Procedure and treatment not carried out, unspecified reason (principal) ==

== ENCOUNTER → 2025-03-15 | Outpatient (CLI) | payer OTHER ==
[2025-03-15 14:15] LABS: BASO # 0.0 10^3/uL (0.0-0.2); BASO % 0.6 % (0.0-1.0); EOS # 0.0 10^3/uL (0.0-0.5); EOS % 0.6 % (0.0-3.0); LYMPH # 1.6 10^3/uL (1.5-5.0); LYMPH % 25.9 % (24.0-44.0); MONO # 0.7 10^3/uL (0.0-0.8); MONO % 10.5 % (2.0-8.0); NEUTROPHILS # 3.8 10^3/uL (1.5-8.5); NEUTROPHILS % 61.8 % (36.0-66.0); PLATELET COUNT, AUTOMATED 207 10^3/uL (150-450)
[2025-03-15 14:38] LABS: CALCIUM LEVEL 9.5 MG/DL (8.5-10.1); CARBON DIOXIDE LEVEL 28 MMOL/L (20-31); CHLORIDE LEVEL 100 MMOL/L (98-107); CREATININE FOR GFR 0.56 MG/DL (0.55-1.30); GLOMERULAR FILTRATION RATE > 90.0 (>51); POTASSIUM SERUM 4.2 MMOL/L (3.5-5.1); SODIUM LEVEL 141 MMOL/L (136-145)
== END ==
LOC: M LABDRWAD 10:53
PROVIDERS: ATTEND Nurse Practitioner Family
DX: Z01.818 Encounter for other preprocedural examination (principal)